=== PATIENT | male | born 1990 | race Caucasian/White ===

== ENCOUNTER 2016-11-05 23:42 | Emergency (ER) | payer OTHER ==
[2016-11-06 00:02] VITALS: BP 146/89; PULSE 114; RESP 20; TEMP 98.9; O2SAT 98
--- NOTE | 2016-11-06 00:27 | ED PDOC ---
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 Notes burning sensation along face and right wrist.) Past Medical History - Musculoskeletal/Rheumatological Hx Gout: Yes - Psychiatric Hx Substance Use: No - Surgical History Hx Appendectomy: Yes - Anesthesia Hx Anesthesia: Yes Hx Anesthesia Reactions: No Hx Malignant Hyperthermia: No Family/Social History Family/Social History: No Known Family HX Smoking Status: Never Smoked Hx Alcohol Use: Yes Hx Substance Use: No Allergies/Home Meds Allergies/Adverse Reactions: Allergies No Known Allergies Allergy (Verified 11/05/16 23:58) Review of Systems - Review of Systems Constitutional: Normal Eyes: Normal ENT: Normal Respiratory: Normal Cardiovascular: Normal Gastrointestinal: Normal Genitourinary Male: Normal Musculoskeletal: Normal Skin: Normal Neurological: Normal Endocrine: Normal Hemo/Lymphatic: Normal Psychiatric: Normal Physical Exam Vital Signs Temp Pulse Resp BP Pulse Ox 11/05/16 23:58 98.9 F 114 H 20 146/89 98 Temperature: Afebrile Blood Pressure: Normal Pulse: Regular Respiratory Rate: Normal Appearance: Positive for: Well-Appearing, Non-Toxic, Comfortable Pain Distress: None Mental Status: Positive for: Alert and Oriented X 3 - Systems Exam Head: Present: Atraumatic, Normocephalic Pupils: Present: PERRL Extroacular Muscles: Present: EOMI Conjunctiva: Present: Normal Mouth: Present: Moist Mucous Membranes Neck: Present: Normal Range of Motion Respiratory/Chest: Present: Clear to Auscultation, Good Air Exchange. No: Respiratory Distress, Accessory Muscle Use Cardiovascular: Present: Regular Rate and Rhythm, Normal S1, S2. No: Murmurs Abdomen: Present: Normal Bowel Sounds. No: Tenderness, Distention, Peritoneal Signs Back: Present: Normal Inspection Upper Extremity: Present: Normal Inspection. No: Cyanosis, Edema Lower Extremity: Present: Normal Inspection. No: Edema Neurological: Present: GCS=15, CN II-XII Intact, Speech Normal Skin: Present: Warm, Dry, Normal Color. No: Rashes Psychiatric: Present: Alert, Oriented x 3, Normal Insight, Normal Concentration Medical Decision Making ED Course and Treatment: 11/06/16 00:27 Patient irrigated face in ED. Alcohol pad/baby shampoo used for relief. Disposition/Present on Arrival - Present on Arrival Any Indicators Present on Arrival: No - Disposition Have Diagnosis and Disposition been Completed?: Yes Diagnosis: Skin irritation Disposition: HOME/ ROUTINE Disposition Time: 01:12 Patient Plan: Discharge Condition: FAIR Forms: [facility] [employer] (Namibian)
== END 2016-11-06 01:33 | disposition home or self-care (01) ==
LOC: H.ER 23:42
DX: R21 Rash and other nonspecific skin eruption (principal)

== ENCOUNTER 2017-10-07 12:11 | Emergency (ER) | payer OTHER, BC ==
--- NOTE | 2017-10-07 13:15 | ED PDOC ---
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 Patient reports that he was at work and was patting down a male who they believed had possibly overdosed when he felt a prick in his right thumb. He reports that he felt the prick through the person's pants and did not see needle sticking out of pants. Patient denies seeing any bleeding, break in skin. He reports that he came to the ED because patient is known to be Hepatitis C positive and he is also requesting UDS because the syringe contained heroin. Past Medical History Reviewed: Historical Data, Nursing Documentation, Vital Signs Vital Signs: Last Vital Signs Temp 97 F L 10/07/17 12:18 Pulse 82 10/07/17 12:18 Resp 18 10/07/17 12:18 BP 152/89 H 10/07/17 12:18 Pulse Ox 99 10/07/17 14:44 - Medical History PMH: No Chronic Diseases - Surgical History Surgical History: Appendectomy - Family History Family History: States: Unknown Family Hx - Immunization History Hx Tetanus Toxoid Vaccination: Yes (2015) - Allergies Allergies/Adverse Reactions: Allergies Allergy/AdvReac Type Severity Reaction Status Date / Time No Known Allergies Allergy Verified 10/07/17 12:17 Review of Systems Constitutional: Positive for: Other (Needle stick) Physical Exam - Reviewed Nursing Documentation Reviewed: Yes Vital Signs Reviewed: Yes - Physical Exam Appears: Positive for: Non-toxic, No Acute Distress Skin: Positive for: Normal Color, Warm, Dry. Negative for: Rash Extremity: Positive for: Other (On the right htumb there is no erythema, break in skin, abrasion, puncture wound or bleeding.). Negative for: Normal ROM, Tenderness, Deformity, Swelling Neurologic/Psych: Positive for: Alert, Oriented - ECG O2 Sat by Pulse Oximetry: 99 (RA) Pulse Ox Interpretation: Normal Medical Decision Making Medical Decision Makin Initial Impression 27 year old male presenting for evaluation after needle stick Initial Plan: * ALT/SGPT Stat * Drug Screen * Hepatitis B Core AB * Hepatitis B Surface AG * Hepatitis C Antibody * Hepatitis surface AB, QN * Rapid HIV screening * Rapid Plasma Reagin * Reevaluation Call placed to [facility] where source patient was taken, he is refusing all bloodwork there. Documented by Meenakshi Talbert acting as a scribe for Charisse Finney MD. All medical record entries made by the Scribe were at my direction and personally dictated by me. I have reviewed the chart and agree that the record accurately reflects my personal performance of the history, physical exam, medical decision making, and the department course for this patient. I have also personally directed, reviewed, and agree with the discharge instructions and disposition. Disposition - Clinical Impression Clinical Impression: Needle stick injury - Disposition Disposition: Routine/Home Disposition Time: 14:35 Condition: GOOD Additional Instructions: FOLLOW-UP WITH WORKMANS COMP SCHEDULED. Instructions: Blood or Body Fluid Exposure Forms: [employer] (Serbian)
[2017-10-07 14:13] LABS: ALT/SGPT 100 U/L (21-72)
[2017-10-07 14:33] LABS: BARBITURATES, UR NEGATIVE (NEGATIVE); BENZODIAZEPINES, UR NEGATIVE (NEGATIVE); OPIATES, UR NEGATIVE (NEGATIVE); PHENCYCLIDINE, UR NEGATIVE (NEGATIVE)
[2017-10-07 23:28] VITALS: BP 138/84; PULSE 79; RESP 16; TEMP 97.8; O2SAT 100
[2017-10-08 08:32] LABS: HEPATITIS B SURFACE AG Negative (NEGATIVE)
[2017-10-08 08:37] LABS: HEPATITIS B CORE AB NEGATIVE (NEGATIVE)
[2017-10-08 16:31] LABS: HEPATITIS C ANTIBODY NEGATIVE (NEGATIVE)
== END 2017-10-07 23:28 | disposition home or self-care (01) ==
LOC: H.ER 12:11
DX: S69.91XA Unspecified injury of right wrist, hand and finger(s), initial encounter (principal); W46.0XXA Contact with hypodermic needle, initial encounter